=== PATIENT | female | born 1955 | race Caucasian/White ===

== ENCOUNTER 2017-05-01 15:02 | Emergency (ER) | payer SELFPAY ==
[2017-05-01 15:39] LABS: BASOPHILS 0.3 % (0-2); EOSINOPHILS 0.5 % (0-7); HEMATOCRIT 42.4 % (36.0-48.0); HEMOGLOBIN 14.2 g/dL (12-16); IMMATURE GRANULOCYTES 2.1 % (0-5); LYMPHOCYTES 24.8 % (15-50); MCHC 33.5 g/dL (31.0-37.0); MCV 86.7 fL (80.0-100.0); MEAN PLATELET VOLUME 9.8 fL (7.4-10.4); MONOCYTES 8.4 % (2-11); NEUTROPHILS 63.9 % (40-80); PLATELET COUNT 247 10x3/uL (130-400); RBC 4.89 10x6/uL (4.00-5.40); WBC 11.7 10x3/uL (4.8-10.8)
[2017-05-01 16:02] LABS: ALBUMIN 3.9 g/dL (3.4-5.0); ANION GAP 14.2 mmol/L (8-16); BILIRUBIN - TOTAL 0.52 mg/dL (0.2-1.3); CALCIUM 9.6 mg/dL (8.5-10.1); CARBON DIOXIDE 28.2 mmol/L (21.0-32.0); CREATININE - SERUM 0.9 mg/dL (0.6-1.3); POTASSIUM - SERUM 4.4 mmol/L (3.5-5.1); PROTEIN - SERUM 7.7 g/dL (6.4-8.2)
[2017-05-01 16:06] LABS: APPEARANCE CLEAR (CLEAR); BILIRUBIN NEGATIVE (NEGATIVE); COLOR YELLOW (YELLOW); GLUCOSE NEGATIVE (NEGATIVE); KETONE NEGATIVE (NEGATIVE); NITRITE NEGATIVE (NEGATIVE); PROTEIN 1+ mg/dL (NEGATIVE); UROBILINOGEN NORMAL (NORMAL)
[2017-05-01 16:07] LABS: WHITE CELLS - URINE 0-5 /hpf (0-5)
[2017-05-01 16:08] LABS: BACTERIA MODERATE /hpf (NONE SEEN); EPITHELIAL CELLS 0-5 /hpf (0-5)
[2017-05-01 17:44] LABS: APTT 20.4 SECONDS (22.8-39.4); INR 0.88 (0.85-1.17); PROTIME 11.5 SECONDS (11.6-15.0)
== END 2017-05-01 20:22 | disposition home or self-care (01) ==
LOC: D.ER 15:02
PROVIDERS: Family Medicine
DX: R51 Headache (principal); R11.10 Vomiting, unspecified